=== PATIENT | male | born 1955 | race Caucasian/White ===

== ENCOUNTER 2021-12-31 15:31 | Emergency (ER) | payer MEDICARE, SELFPAY ==
--- NOTE | ~2021-12-31 | CT_ITS ---
EXAMINATION: CT abdomen pelvis wo con DATE: 12/31/2021 16:17 INDICATION: Abdominal pain TECHNIQUE: Computed tomography (CT) of the abdomen and pelvis was performed without intravenous contr ast. Automated exposure control and iterative reconstruction technique were employed. The dose-length product was 713.12 mGy-cm. COMPARISON: None FINDINGS: Lung bases are clear. Heart size is normal. Atherosclerotic coronary artery calcific lesion. No peric ardial or pleural effusion. Liver, gallbladder, pancreas, bilateral adrenal glands and left kidney ar e normal. Mild splenomegaly measuring 14 cm in maximal length. 5 stones in the right kidney measuring up to 3 mm. No ureteral stones or hydronephrosis. Prostatomegaly measuring 5.2 x 4.3 cm and which im presses upon the base of the otherwise normal bladder. Moderate-sized fat-containing left inguinal he rnia. There is mild to moderate colonic diverticulosis with a sigmoid predominance. There is no adjac ent inflammatory change to suggest diverticulitis. Small bowel and appendix are normal. No free intra peritoneal gas or fluid. No pathologically enlarged abdominal or pelvic lymphadenopathy. There is aracelis cified atherosclerosis of the aorta and many of the other arteries. Severe lumbar and moderate lower thoracic spondylosis. IMPRESSION: 1. Nonobstructing right nephrolithiasis. 2. Diverticulosis. 3. Symmetric mild splenomegaly measuring 14 cm in maximal length. 4. Prostatomegaly. 5. Moderate-sized fat-containing left inguinal hernia. Reviewed, dictated and finalized at location A.
[2021-12-31 15:36] VITALS: BP 136/81; PULSE 87; RESP 16; TEMP 36.8; O2SAT 99
[2021-12-31 15:48] LABS: Basophils Absolute Auto 0.1 K/mm3 (0.0-0.1); Basophils Percent Auto 0.8 % (0.2-1.2); Eosinophils Percent Auto 0.6 % (0-4.4); Hematocrit 35.4 % (42.0-52.0); Hemoglobin 12.4 g/dL (14.0-18.0); Immature Granulocyte Absolute 0.03 K/mm3 (0.00-0.031); Immature Granulocyte Percent A 0.4 % (0-0.5); Lymphocytes Absolute Auto 1.64 K/mm3 (0.9-3.2); Lymphocytes Percent Auto 23.1 % (18.3-44.2); Mean Corpuscular Volume 108.6 fl (80-100); Mean Platelet Volume 10.2 fl (7.4-10.4); Monocytes Absolute Auto 0.9 K/mm3 (0.1-0.6); Monocytes Percent Auto 12.8 % (2.6-8.5); Neutrophils Absolute Auto 4.4 K/mm3 (1.3-6.7); Neutrophils Percent Auto 62.3 % (45.5-73.1); Platelet Count Result 117 k/mm3 (150-375); Red Blood Count 3.26 M/mm3 (4.6-6.20); Red Cell Distribution Width 13.8 % (11.5-14.5); White Blood Count 7.1 K/mm3 (4.5-10.0)
[2021-12-31 16:00] LABS: Alanine Aminotransferase 139 U/L (4-50); Albumin Level 4.8 g/dL (3.5-5.1); Alkaline Phosphatase 108 U/L (38-126); Anion Gap 8 mmol/L (8-16); Aspartate Amino Transferase 93 U/L (17-59); Bilirubin,Total 0.6 mg/dL (0.2-1.3); Blood Urea Nitrogen 13 mg/dL (9-20); Calcium 9.1 mg/dL (8.4-10.2); Carbon Dioxide 25 mmol/L (22-30); Chloride 105 mmol/L (98-107); Estimated CRCL calculation 89 ml/min; Estimated Glomerular Filt Rate > 60; Glucose 124 mg/dL (65-110); Potassium 3.9 mmol/L (3.4-5.0); Sodium 138 mmol/L (137-145)
--- NOTE | 2021-12-31 17:02 | ED.ABDPAIN ---
HPI - Abdominal Pain General Chief Complaint: Abdominal Pain Stated Complaint: Kidney pain L Time Seen by Provider: 12/31/21 17:02 Source: patient Mode of arrival: ambulatory Limitations: no limitations History of Present Illness HPI narrative: Patient is a 66-year-old male with with a history of hepatitis C, treated, otherwise has not been to a physician in many years, presenting to the emergency department for evaluation of left lower back pain, dysuria over the past week. Patient states that he was on a cruise, developed severe back pain after falling and his back striking 2 steps while on the cruise ship. Patient states that he was ambulatory but did have significant pain with ambulation in the left back. Denied any saddle anesthesia, difficulty with bowel or bladder function. He has been ambulatory but at times does report spasm-like pain in the left lower flank. Patient denies any bruising. No head trauma or loss of consciousness. Patient was ambulatory after the fall. Patient also developed dysuria on the cruise as well as dark urine although he states that this occurred after a day of not drinking much water. The patient went to the cruise ship physician and had a urinalysis that was notable for infection, thus the patient was placed on a course of ciprofloxacin. Patient was advised to return to [facility] and be evaluated at the [facility]. Patient then went to the [facility] in [place] and had a ultrasound done which showed stones in the left kidney. Patient states he returns here for continued left flank pain and wanted a second opinion. Patient denies dysuria, hematuria. He denies fever, chills, nausea, vomiting, chest pain, cough or shortness of breath. Denies leg swelling or calf pain. Denies significant constipation or diarrhea. Denies frontal abdominal pain. Related Data Allergies Allergy/AdvReac Type Severity Reaction Status Date / Time lisinopril Allergy Unknown Verified 12/31/21 15:34 Review of Systems Review of Systems: CONSTITUTIONAL: Denies fever, chills, or sweats. EYES: Denies visual changes, redness, or discharge. ENT: Denies rhinorrhea, congestion, sore throat, or otalgia. CARDIOVASCULAR: Denies chest pain, palpitations, or edema. RESPIRATORY: Denies cough or dyspnea. GASTROINTESTINAL: Denies abdominal pain, nausea, vomiting, or diarrhea. GENITOURINARY: Denies dysuria or hematuria. SKIN: Denies rash or itching. MUSCULOSKELETAL: Reports left back pain, joint pain, or myalgia. NEUROLOGIC: Denies headache, numbness, or weakness. [facility] Past Medical History Medical History (Updated 12/31/21 @ 19:12 by Marge Brock MD) Hepatitis C Surgical History Surgical History (Updated 12/31/21 @ 19:12 by Marge Brock MD) H/O vasectomy Family History Family History (Updated 04/28/12 @ 09:37 by DOCTOR UNKNOWN) Other Cerebrovascular accident Social History Social History (Updated 12/31/21 @ 19:12 by Marge Brock MD) Alcohol intake: current Substance use: never Living arrangements: with family Gender identity (if verbalized by the patient): Male Exam Narrative: GENERAL: Awake, alert, conversant HEAD: Normocephalic, atraumatic. EYES: PERRLA and EOMI. ENT: Nares clear, no rhinorrhea or epistaxis. Mucous membranes moist. NECK: Supple. No midline cervical tenderness. No step-offs or deformities. No cervical paraspinal tenderness. CHEST: No respiratory distress, breathing even and non labored. No chest wall tenderness. HEART: Regular rate, sinus rhythm ABDOMEN:Non distended, non tender, no rebound, rigidity or guarding, there is posterior left flank tenderness about the left lumbar area which reproduces pain, no ecchymosis or bruising. Thorax: No midline thoracic or lumbar pain. No step-offs or deformities. EXTREMITIES: Normal range of motion. No edema. SKIN: Warm, dry, no rash. NEURO:No focal deficits. Alert and oriented x3. Finger to nose intact bilaterally.
[2021-12-31 17:24] LABS: Add Urine Microscopic? NO; Appearance Urine Clear (Clear); Bilirubin Urine Negative (Negative); Blood Urine Negative (Negative); Color Urine Yellow (Yellow); Glucose Urine UA Negative (Negative); Ketones Urine Negative (Negative); Leukocyte Esterase Ur Negative LEU/UL (Negative); Nitrate Urine Negative (Negative); Protein Urine Negative (Negative); Specific Grav Ur 1.011 (1.001-1.035); Urobilinogen Urine Negative mg/dL (<2.0)
== END 2021-12-31 18:33 | disposition home or self-care (01) ==
LOC: ANHED 18:25
PROVIDERS: Emergency Provider Emergency Medicine; PCP Internal Medicine
DX: S29.9XXA Unspecified injury of thorax, initial encounter (principal); N41.0 Acute prostatitis; Z86.19 Personal history of other infectious and parasitic diseases; K57.90 Diverticulosis of intestine, part unspecified, without perforation or abscess without bleeding; R16.1 Splenomegaly, not elsewhere classified; K40.90 Unilateral inguinal hernia, without obstruction or gangrene, not specified as recurrent; N20.0 Calculus of kidney; W10.9XXA Fall (on) (from) unspecified stairs and steps, initial encounter
CPT/HCPCS: 36415; 74176; 80053; 81003; 85025; 99284

== ENCOUNTER 2022-01-11 09:43 | Outpatient (CLI) | payer MEDICARE, SELFPAY ==
--- NOTE | ~2022-01-11 | XR_ITS ---
EXAMINATION: XR chest 2V 01/11/2022 10:33 INDICATION: Splenomegaly. Positive TB test. PROCEDURE: 2 view chest COMPARISON: 05/30/2012 FINDINGS: The lungs are clear. The cardiomediastinal silhouette is within normal limits. There are no pleural effusions. There is no pneumothorax suspected. IMPRESSION: 1: NO ACUTE CARDIOPULMONARY DISEASE. Reviewed, dictated and finalized at location A.
[2022-01-11 10:30] LABS: Basophils Absolute Auto 0.1 K/mm3 (0.0-0.1); Eosinophils Absolute Auto 0.1 K/mm3 (0-0.3); Eosinophils Percent Auto 1.9 % (0-4.4); Hematocrit 37.1 % (42.0-52.0); Hemoglobin 12.8 g/dL (14.0-18.0); Immature Granulocyte Absolute 0.02 K/mm3 (0.00-0.031); Immature Granulocyte Percent A 0.3 % (0-0.5); Lymphocytes Percent Auto 27.5 % (18.3-44.2); Mean Corpuscular HGB Conc 34.5 g/dl (32-36); Mean Corpuscular Hemoglobin 37.6 pg (26-34); Mean Corpuscular Volume 109.1 fl (80-100); Mean Platelet Volume 10.2 fl (7.4-10.4); Monocytes Percent Auto 17.5 % (2.6-8.5); Neutrophils Percent Auto 51.8 % (45.5-73.1); Platelet Count Result 104 k/mm3 (150-375); Red Cell Distribution Width 13.4 % (11.5-14.5); White Blood Count 5.8 K/mm3 (4.5-10.0)
[2022-01-11 10:46] LABS: Alanine Aminotransferase 145 U/L (4-50); Albumin Level 4.6 g/dL (3.5-5.1); Alkaline Phosphatase 117 U/L (38-126); Anion Gap 5 mmol/L (8-16); Aspartate Amino Transferase 92 U/L (17-59); Bilirubin,Total 0.5 mg/dL (0.2-1.3); Blood Urea Nitrogen 14 mg/dL (9-20); Calcium 9.4 mg/dL (8.4-10.2); Carbon Dioxide 28 mmol/L (22-30); Chloride 106 mmol/L (98-107); Estimated Glomerular Filt Rate > 60; Glucose 83 mg/dL (65-110); Potassium 4.3 mmol/L (3.4-5.0); Sodium 139 mmol/L (137-145)
[2022-01-11 10:49] LABS: Hemoglobin A1C 5.6 % (<5.7); Iron 132 ug/dL (49-181)
[2022-01-11 10:59] LABS: Percent Iron Saturation 38 % (20-50)
[2022-01-11 11:44] LABS: Hepatitis C Virus Antibody Reactive (Negative)
[2022-01-11 11:48] LABS: Folic Acid 14.5 ng/mL (2.76->20)
[2022-01-11 13:02] LABS: HIV 1/2 Ab P24 Ag Result Negative (Negative)
[2022-01-15 12:41] LABS: Hepatitis C RNA, Quant PCR <15 IU/mL
== END 2022-01-11 09:44 | disposition home or self-care (01) ==
PROVIDERS: PCP Internal Medicine; Visit Provider Nurse Practitioner
DX: R16.1 Splenomegaly, not elsewhere classified (principal); D64.9 Anemia, unspecified; N40.0 Benign prostatic hyperplasia without lower urinary tract symptoms; R73.9 Hyperglycemia, unspecified; Z12.5 Encounter for screening for malignant neoplasm of prostate
CPT/HCPCS: 36415; 71046; 80053; 82607; 82728; 82746; 83036; 83540; 83550; 84153; 84443; 85025; 86703; 86803; 87522; G0103; G0432

== ENCOUNTER 2022-01-17 08:03 | Outpatient (CLI) | payer MEDICARE, SELFPAY ==
[2022-01-20 14:39] LABS: Hepatitis C RNA, Quant PCR <15 IU/mL
== END 2022-01-17 08:04 | disposition home or self-care (01) ==
LOC: ANHLAB 08:04
PROVIDERS: PCP Internal Medicine; Visit Provider Nurse Practitioner
DX: R76.8 Other specified abnormal immunological findings in serum (principal)
CPT/HCPCS: 36415; 87522

== ENCOUNTER 2022-01-23 07:58 | Outpatient (CLI) | payer MEDICARE, SELFPAY ==
[2022-01-23 08:37] LABS: Basophils Percent Auto 0.5 % (0.2-1.2); Eosinophils Absolute Auto 0.1 K/mm3 (0-0.3); Eosinophils Percent Auto 1.2 % (0-4.4); Hemoglobin 12.1 g/dL (14.0-18.0); Immature Granulocyte Absolute 0.02 K/mm3 (0.00-0.031); Immature Granulocyte Percent A 0.3 % (0-0.5); Lymphocytes Absolute Auto 1.82 K/mm3 (0.9-3.2); Lymphocytes Percent Auto 31.3 % (18.3-44.2); Mean Corpuscular HGB Conc 34.6 g/dl (32-36); Mean Corpuscular Hemoglobin 37.6 pg (26-34); Mean Corpuscular Volume 108.7 fl (80-100); Mean Platelet Volume 10.2 fl (7.4-10.4); Monocytes Absolute Auto 0.6 K/mm3 (0.1-0.6); Monocytes Percent Auto 9.5 % (2.6-8.5); Neutrophils Absolute Auto 3.3 K/mm3 (1.3-6.7); Neutrophils Percent Auto 57.2 % (45.5-73.1); Platelet Count Result 110 k/mm3 (150-375); Red Blood Count 3.22 M/mm3 (4.6-6.20); Red Cell Distribution Width 13.5 % (11.5-14.5); White Blood Count 5.8 K/mm3 (4.5-10.0)
== END 2022-01-23 07:59 | disposition home or self-care (01) ==
LOC: ANHLAB 08:01
PROVIDERS: PCP Internal Medicine; Visit Provider Nurse Practitioner
DX: D69.6 Thrombocytopenia, unspecified (principal)
CPT/HCPCS: 36415; 85025

== ENCOUNTER 2022-01-26 08:17 | Outpatient (CLI) | payer MEDICARE, SELFPAY ==
[2022-01-26 09:19] LABS: Cholesterol 153 mg/dL (0-200); HDL Direct 32 mg/dL; Triglycerides 150 mg/dL (<150)
[2022-01-26 09:29] LABS: LDL Cholesterol Direct 75 mg/dL
== END 2022-01-26 08:18 | disposition home or self-care (01) ==
PROVIDERS: PCP Internal Medicine; Visit Provider Nurse Practitioner
DX: R74.01 Elevation of levels of liver transaminase levels (principal); Z13.220 Encounter for screening for lipoid disorders
CPT/HCPCS: 36415; 80061

== ENCOUNTER 2022-01-29 15:10 | Outpatient (CLI) | payer MEDICARE, SELFPAY ==
--- NOTE | ~2022-01-29 | XR_ITS ---
EXAM: XR abdomen/kub 1V HISTORY: KIDNEY STONE ON RIGHT SIDE COMPARISON: CT abdomen and pelvis 12/31/2021. FINDINGS: Normal bowel gas pattern. Vascular calcifications. Degenerative changes in the spine and b ilateral hips. 4 small right renal calcifications, 2 to 3 mm in size, unchanged. Mild splenomegaly. IMPRESSION: Stable right nephrolithiasis. Reviewed, dictated and finalized at location K.
== END 2022-01-29 15:11 | disposition home or self-care (01) ==
LOC: ANHIMG 15:13
PROVIDERS: PCP Internal Medicine; Visit Provider Urology
DX: N20.0 Calculus of kidney (principal)
CPT/HCPCS: 74018

== ENCOUNTER 2022-02-01 08:18 | Outpatient (CLI) | payer MEDICARE, SELFPAY | END 2022-02-01 08:19 | disposition home or self-care (01) | PROVIDERS: PCP Internal Medicine; Visit Provider Nurse Practitioner | DX: H91.90 Unspecified hearing loss, unspecified ear (principal) | CPT/HCPCS: 92557; 92567 ==

== ENCOUNTER 2022-02-06 08:41 | Outpatient (CLI) | payer MEDICARE, SELFPAY ==
--- NOTE | ~2022-02-06 | US_ITS ---
EXAMINATION: US abdomen complete DATE: 02/06/2022 09:45 INDICATION: Abnormal liver function tests. TECHNIQUE: Multiple grayscale and Doppler ultrasound images of the abdomen were obtained. COMPARISON: CT abdomen and pelvis 12/31/2021 FINDINGS: There is atherosclerosis of the abdominal aorta. The inferior vena cava is normal. The visu alized portions of the head and body of the pancreas are normal. There is diffuse hepatic steatosis. There is normal flow in main portal vein. The gallbladder is normal in size. There are comet tail art ifacts of the gallbladder wall, consistent with adenomyomatosis. No gallstones or gallbladder wall th ickening. There was no sonographic Roberts sign. The common duct is normal and measures 4 mm. The kidn eys are normal in size. There is mild splenomegaly measuring 14.3 cm. IMPRESSION: 1. Diffuse hepatic steatosis. 2. Mild splenomegaly. Reviewed, dictated and finalized at location B.
== END 2022-02-06 08:42 | disposition home or self-care (01) ==
LOC: ANHIMG 08:45
PROVIDERS: PCP Internal Medicine; Visit Provider Nurse Practitioner
DX: R74.01 Elevation of levels of liver transaminase levels (principal); K76.0 Fatty (change of) liver, not elsewhere classified; R16.1 Splenomegaly, not elsewhere classified
CPT/HCPCS: 76700

== ENCOUNTER 2022-03-02 10:45 | Outpatient (CLI) | payer MEDICARE, SELFPAY ==
[2022-03-02 11:37] LABS: Basophils Percent Auto 0.7 % (0.2-1.2); Eosinophils Absolute Auto 0.1 K/mm3 (0-0.3); Eosinophils Percent Auto 1.9 % (0-4.4); Hematocrit 33.8 % (42.0-52.0); Hemoglobin 11.5 g/dL (14.0-18.0); Immature Granulocyte Absolute 0.04 K/mm3 (0.00-0.031); Immature Granulocyte Percent A 0.7 % (0-0.5); Lymphocytes Absolute Auto 1.36 K/mm3 (0.9-3.2); Lymphocytes Percent Auto 23.9 % (18.3-44.2); Mean Corpuscular Hemoglobin 37.6 pg (26-34); Mean Corpuscular Volume 110.5 fl (80-100); Mean Platelet Volume 10.5 fl (7.4-10.4); Monocytes Absolute Auto 0.8 K/mm3 (0.1-0.6); Monocytes Percent Auto 14.2 % (2.6-8.5); Neutrophils Absolute Auto 3.3 K/mm3 (1.3-6.7); Neutrophils Percent Auto 58.6 % (45.5-73.1); Red Blood Count 3.06 M/mm3 (4.6-6.20); White Blood Count 5.7 K/mm3 (4.5-10.0)
[2022-03-02 11:41] LABS: Platelet Count Result 94 k/mm3 (150-375)
[2022-03-02 11:54] LABS: Alanine Aminotransferase 94 U/L (6-50); Albumin Level 4.6 g/dL (3.5-5.1); Alkaline Phosphatase 146 U/L (38-126); Anion Gap 8 mmol/L (8-16); Aspartate Amino Transferase 74 U/L (17-59); Bilirubin,Total 0.3 mg/dL (0.2-1.3); Blood Urea Nitrogen 11 mg/dL (9-20); Calcium 9.2 mg/dL (8.4-10.2); Carbon Dioxide 24 mmol/L (22-30); Chloride 107 mmol/L (98-107); Estimated Glomerular Filt Rate > 60; Glucose 96 mg/dL (65-110); Lactate Dehydrogenase 497 U/L (313-618); Potassium 4.4 mmol/L (3.4-5.0); Sodium 139 mmol/L (137-145)
[2022-03-02 12:03] LABS: Iron 93 ug/dL (49-181)
[2022-03-02 12:12] LABS: Percent Iron Saturation 29 % (20-50)
[2022-03-02 13:07] LABS: Folic Acid > 20.0 ng/mL (2.76->20)
[2022-03-07 16:50] LABS: Methylmalonic Acid 136 nmol/L (87-318)
== END 2022-03-02 10:46 | disposition home or self-care (01) ==
LOC: ANHLAB 10:46
PROVIDERS: PCP Internal Medicine; Visit Provider Internal Medicine Hematology & Oncology
DX: D64.9 Anemia, unspecified (principal)
CPT/HCPCS: 36415; 80053; 82607; 82728; 82746; 83540; 83550; 83615; 83921; 84443; 85025

== ENCOUNTER 2022-03-20 10:43 | Outpatient (RCR) | payer MEDICARE, MEDICAID, SELFPAY | END 2022-03-20 23:59 | disposition home or self-care (01) | LOC: ANHAUDIO 10:43 | PROVIDERS: PCP Internal Medicine; Visit Provider Nurse Practitioner | DX: Z46.1 Encounter for fitting and adjustment of hearing aid (principal) | CPT/HCPCS: 99199 ==

== ENCOUNTER 2022-09-25 10:56 | Outpatient (CLI) | payer MEDICARE, SELFPAY ==
[2022-09-25 11:09] LABS: Basophils Absolute Auto 0.1 K/mm3 (0.0-0.1); Basophils Percent Auto 0.8 % (0.2-1.2); Eosinophils Absolute Auto 0.1 K/mm3 (0-0.3); Eosinophils Percent Auto 1.4 % (0-4.4); Hematocrit 35.5 % (42.0-52.0); Hemoglobin 12.3 g/dL (14.0-18.0); Immature Granulocyte Absolute 0.01 K/mm3 (0.00-0.031); Immature Granulocyte Percent A 0.1 % (0-0.5); Mean Corpuscular HGB Conc 34.6 g/dl (32-36); Mean Corpuscular Hemoglobin 37.4 pg (26-34); Mean Corpuscular Volume 107.9 fl (80-100); Mean Platelet Volume 9.8 fl (7.4-10.4); Neutrophils Absolute Auto 4.2 K/mm3 (1.3-6.7); Neutrophils Percent Auto 59.7 % (45.5-73.1); Platelet Count Result 119 k/mm3 (150-375); Red Blood Count 3.29 M/mm3 (4.6-6.20); Red Cell Distribution Width 13.8 % (11.5-14.5); White Blood Count 7.1 K/mm3 (4.5-10.0)
[2022-09-25 11:13] LABS: Blood Urea Nitrogen 13 mg/dL (8-26); Carbon Dioxide 26 mmol/L (22-30); Chloride 104 mmol/L (98-109); Estimated Glomerular Filt Rate > 60; Glucose 101 mg/dL (70-105); Ionized Calcium (POC) 1.21 mmol/L (1.11-1.31); Potassium 4.2 mmol/L (3.5-4.9); Sodium 141 mmol/L (138-146)
[2022-09-25 15:31] LABS: Iron 118 ug/dL (49-181)
[2022-09-25 15:41] LABS: Percent Iron Saturation 34 % (20-50)
[2022-09-25 15:42] LABS: Alanine Aminotransferase 53 U/L (6-50); Alkaline Phosphatase 110 U/L (38-126); Anion Gap 10 mmol/L (8-16); Aspartate Amino Transferase 56 U/L (17-59); Bilirubin,Total 0.5 mg/dL (0.2-1.3); Blood Urea Nitrogen 14 mg/dL (9-20); Calcium 9.2 mg/dL (8.4-10.2); Carbon Dioxide 25 mmol/L (22-30); Chloride 106 mmol/L (98-107); Estimated Glomerular Filt Rate > 60; Glucose 101 mg/dL (65-110); Potassium 4.2 mmol/L (3.4-5.0); Sodium 141 mmol/L (137-145)
== END 2022-09-25 10:57 | disposition home or self-care (01) ==
LOC: ANHLAB 10:57
PROVIDERS: PCP Internal Medicine; Visit Provider Internal Medicine Hematology & Oncology
DX: D64.9 Anemia, unspecified (principal)
CPT/HCPCS: 36415; 80047; 80053; 82728; 83540; 83550; 85025

== ENCOUNTER 2023-03-22 13:47 | Outpatient (CLI) | payer MEDICARE, SELFPAY ==
[2023-03-22 13:59] LABS: Basophils Absolute Auto 0.1 K/mm3 (0.0-0.1); Basophils Percent Auto 0.7 % (0.2-1.2); Eosinophils Absolute Auto 0.1 K/mm3 (0-0.3); Eosinophils Percent Auto 1.4 % (0-4.4); Immature Granulocyte Absolute 0.01 K/mm3 (0.00-0.031); Immature Granulocyte Percent A 0.1 % (0-0.5); Lymphocytes Absolute Auto 1.42 K/mm3 (0.9-3.2); Lymphocytes Percent Auto 20.2 % (18.3-44.2); Mean Corpuscular HGB Conc 35.5 g/dl (32-36); Mean Corpuscular Hemoglobin 37.4 pg (26-34); Mean Corpuscular Volume 105.4 fl (80-100); Mean Platelet Volume 9.7 fl (7.4-10.4); Monocytes Absolute Auto 0.8 K/mm3 (0.1-0.6); Monocytes Percent Auto 11.8 % (2.6-8.5); Neutrophils Absolute Auto 4.6 K/mm3 (1.3-6.7); Neutrophils Percent Auto 65.8 % (45.5-73.1); Platelet Count Result 117 k/mm3 (150-375); Red Blood Count 2.94 M/mm3 (4.6-6.20); Red Cell Distribution Width 13.7 % (11.5-14.5)
[2023-03-22 16:15] LABS: Alanine Aminotransferase 36 U/L (6-50); Albumin Level 4.6 g/dL (3.5-5.1); Alkaline Phosphatase 94 U/L (38-126); Anion Gap 9 mmol/L (8-16); Aspartate Amino Transferase 36 U/L (17-59); Bilirubin,Total 0.4 mg/dL (0.2-1.3); Blood Urea Nitrogen 12 mg/dL (9-20); Calcium 9.2 mg/dL (8.4-10.2); Carbon Dioxide 24 mmol/L (22-30); Chloride 104 mmol/L (98-107); Estimated Glomerular Filt Rate > 60; Glucose 152 mg/dL (65-110); Iron 102 ug/dL (49-181); Potassium 4.1 mmol/L (3.4-5.0); Sodium 137 mmol/L (137-145)
[2023-03-22 16:24] LABS: Percent Iron Saturation 30 % (20-50)
== END 2023-03-22 13:48 | disposition home or self-care (01) ==
LOC: ANHLAB 13:48
PROVIDERS: PCP Internal Medicine; Visit Provider Internal Medicine Hematology & Oncology
DX: D64.9 Anemia, unspecified (principal)
CPT/HCPCS: 36415; 80053; 82728; 83540; 83550; 85025

== ENCOUNTER 2023-09-23 08:48 | Outpatient (CLI) | payer MEDICARE, SELFPAY ==
[2023-09-23 09:03] LABS: Basophils Absolute Auto 0.1 K/mm3 (0.0-0.1); Basophils Percent Auto 0.8 % (0.2-1.2); Eosinophils Absolute Auto 0.2 K/mm3 (0-0.3); Eosinophils Percent Auto 2.3 % (0-4.4); Hematocrit 36.7 % (42.0-52.0); Hemoglobin 12.5 g/dL (14.0-18.0); Immature Granulocyte Absolute 0.03 K/mm3 (0.00-0.031); Immature Granulocyte Percent A 0.4 % (0-0.5); Lymphocytes Absolute Auto 2.06 K/mm3 (0.9-3.2); Lymphocytes Percent Auto 28.1 % (18.3-44.2); Mean Corpuscular HGB Conc 34.1 g/dl (32-36); Mean Corpuscular Hemoglobin 36.5 pg (26-34); Mean Corpuscular Volume 107.3 fl (80-100); Mean Platelet Volume 9.7 fl (7.4-10.4); Monocytes Absolute Auto 1.1 K/mm3 (0.1-0.6); Monocytes Percent Auto 14.6 % (2.6-8.5); Neutrophils Absolute Auto 3.9 K/mm3 (1.3-6.7); Neutrophils Percent Auto 53.8 % (45.5-73.1); Platelet Count Result 137 k/mm3 (150-375); Red Blood Count 3.42 M/mm3 (4.6-6.20); Red Cell Distribution Width 14.1 % (11.5-14.5); White Blood Count 7.3 K/mm3 (4.5-10.0)
[2023-09-23 23:02] LABS: Iron 114 ug/dL (49-181)
[2023-09-23 23:03] LABS: Alanine Aminotransferase 36 U/L (6-50); Albumin Level 4.9 g/dL (3.5-5.1); Alkaline Phosphatase 90 U/L (38-126); Anion Gap 8 mmol/L (8-16); Aspartate Amino Transferase 36 U/L (17-59); Bilirubin,Total 0.5 mg/dL (0.2-1.3); Blood Urea Nitrogen 14 mg/dL (9-20); Carbon Dioxide 25 mmol/L (22-30); Chloride 107 mmol/L (98-107); Estimated Glomerular Filt Rate > 60; Glucose 77 mg/dL (65-110); Potassium 4.3 mmol/L (3.4-5.0); Sodium 140 mmol/L (137-145)
[2023-09-23 23:12] LABS: Percent Iron Saturation 35 % (20-50)
[2023-09-24 00:09] LABS: Folic Acid 14.5 ng/mL (2.76->20)
== END 2023-09-23 08:49 | disposition home or self-care (01) ==
LOC: ANHLAB 08:50
PROVIDERS: PCP Internal Medicine; Visit Provider Internal Medicine Hematology & Oncology
DX: D64.9 Anemia, unspecified (principal)
CPT/HCPCS: 36415; 80053; 82607; 82728; 82746; 83540; 83550; 85025

== ENCOUNTER 2023-10-04 08:37 | Outpatient (CLI) | payer MEDICARE, SELFPAY ==
[2023-10-04 12:33] LABS: Cholesterol 153 mg/dL (0-200); HDL Direct 35 mg/dL; Triglycerides 136 mg/dL (<150)
[2023-10-04 12:55] LABS: LDL Cholesterol Direct 82 mg/dL
[2023-10-04 13:12] LABS: Prostate Specific Antigen 1.1 ng/mL (< OR = 4.0)
== END 2023-10-04 08:38 | disposition home or self-care (01) ==
LOC: ANHGOSHLAB 08:39
PROVIDERS: PCP Internal Medicine; Visit Provider Nurse Practitioner
DX: R74.01 Elevation of levels of liver transaminase levels (principal); Z13.220 Encounter for screening for lipoid disorders; Z12.5 Encounter for screening for malignant neoplasm of prostate
CPT/HCPCS: 36415; 80061; 84153; G0103

== ENCOUNTER → 2023-10-30 16:32 | Outpatient (REF) | payer MEDICARE, SELFPAY | LOC: ANHLAB 16:32 | PROVIDERS: PCP Internal Medicine; Visit Provider Plastic Surgery | DX: C44.622 Squamous cell carcinoma of skin of right upper limb, including shoulder (principal) | CPT/HCPCS: 88305 ==

== ENCOUNTER 2024-02-13 19:00 | Emergency (ER) | payer MEDICARE, SELFPAY ==
[2024-02-13 19:24] VITALS: BP 117/77; PULSE 74; RESP 16; TEMP 36.6; O2SAT 98
--- NOTE | 2024-02-13 19:27 | ED.GENADULT ---
HPI - General Adult General Chief complaint: Eye Problems Stated complaint: INJURED L EYE Source: patient, RN notes reviewed and old records reviewed Mode of arrival: ambulatory Limitations: no limitations History of Present Illness HPI narrative: 60 year male presents to [facility] with complaint of left eye watering and pain that started about 4 hours ago. Patient states poke self and eye with tree branch. Patient has not tried any at-home remedies. Patient denies any other injuries. Related Data Home Medications Medication Instructions Recorded Confirmed loratadine 10 mg tablet (Claritin) 10 mg PO DAILY 01/10/22 02/13/24 multivitamin 1 tablet PO DAILY 01/10/22 02/13/24 Allergies Allergy/AdvReac Type Severity Reaction Status Date / Time ciprofloxacin [From Cipro] Allergy Other Verified 02/13/24 19:16 lisinopril Allergy Cough Verified 02/13/24 19:16 Review of Systems Constitutional: Constitutional: Reports no additional constitutional complaints, Denies body ache(s), Denies chills, Denies fatigue, Denies fever(s) and Denies headache(s) Eyes: Eyes: Denies as per HPI, Reports no additional eye complaints, Denies blind spots, Denies blurry vision, Denies exophthalmos, Denies change in vision, Denies decreased night vision, Denies diplopia, Reports eye discharge, Denies irritation and Reports eye pain ENT: Reports system reviewed and no additional complaints, except as documented, Denies vertigo, Denies dizziness, Denies ear discharge, Denies otalgia, Denies facial pain, Denies headache(s), Denies nasal congestion, Denies nasal discharge, Denies sinus pain, Denies sinus pressure and Denies sore throat Cardiovascular: Cardiovascular: Reports no additional cardiovascular complaints, Denies chest pain, Denies chest pain at rest, Denies rapid heart rate and Denies dyspnea Respiratory: Respiratory: Reports no additional respiratory complaints, Denies chest congestion, Denies cough, Denies pain on inspiration, Denies pain with cough and Denies dyspnea Gastrointestinal: Gastrointestinal: Denies abdominal pain, Denies diarrhea, Denies nausea and Denies vomiting Integumentary/Breasts: Skin/Breast: Denies rash Neurologic: Reports system reviewed and no additional complaints, except as documented, Denies vertigo, Denies dizziness and Denies headache(s) Endocrine: Endocrine: Denies fatigue PMFSH Past Medical History Medical History Arthritis Elevated liver enzymes Hepatitis C Surgical History Surgical History H/O repair of rotator cuff 2008 H/O vasectomy S/P lateral meniscal repair 2010 Family History Family History Father Lung cancer Throat cancer Tuberculosis Leukemia Mother Ovarian cancer Other Cerebrovascular accident Social History Social History Smoking status: Former smoker Smoking end date: 10/21/00 Alcohol intake: current Substance use: never Living arrangements: with family Gender identity (if verbalized by the patient): Male Comments At the time of my signature, I reviewed and agree with the nursing past medical, surgical, social, and family history. There is no relevant family history pertinent to the patient complaint. Exam Const: General: cooperative, healthy appearing, no acute distress and well nourished Nutritional Appearance: well nourished Orientation/consciousness: patient oriented x3 Limitations: no limitations HENMT: Head: normal to inspection and normocephalic Ears: external ears normal Face/Nose/Sinus: normal facial exam Face and sinus: normal facial exam Mouth: Yes Normal oral and palatal mucosa present, Yes oropharynx normal and Yes moist mucous membranes Eyes: General: appearance normal, both eyes and all related structures Vis
[2024-02-13] MEDS: TETANUS,DIPHTHERIA,AC PERTUSSIS ADULT (0.5 ML) BOOSTRIX IM (19:40)
== END 2024-02-13 19:50 | disposition home or self-care (01) ==
PROVIDERS: Emergency Provider Registered Nurse; PCP Internal Medicine
DX: S05.02XA Injury of conjunctiva and corneal abrasion without foreign body, left eye, initial encounter (principal); W22.8XXA Striking against or struck by other objects, initial encounter; Z23 Encounter for immunization; M19.90 Unspecified osteoarthritis, unspecified site; Z98.52 Vasectomy status
CPT/HCPCS: 90471; 90715; 99213; A9270; G0463

== ENCOUNTER 2024-05-07 09:46 | Outpatient (CLI) | payer MEDICARE, SELFPAY ==
--- NOTE | 2024-05-12 16:18 | WPDHOMESLEEP ---
Sleep Study - Home Unattended Date of Study: 05/07/24 Ordering Provider: Tiki Goss NP Interpreting Provider: Mary Jo Purdy MD Home Sleep Study Type: Watch JACQUELINE Height: 1.75 m Weight: 83.915 kg Body Mass Index: 27.3 Neck Circumference (inches): 16.5 [place]: 9 Reason for Sleep Study Interrupted sleep, frequent nighttime awakenings Sleep History Chris Hernandez is a 68-year-old man with poor quality sleep. He never awakens from sleep feeling short of breath. He rarely wakes at night with heartburn, belching or coughing.??He never snores, however rarely snores loudly enough that others complain. He rarely has trouble sleeping when he has a cold. He never wakes up gasping for breath during the night. He rarely has breathing problems at night. He occasionally sweats excessively at night. He never notices his heart pounding or beating irregularly during the night. He occasionally falls asleep during the day. He rarely falls asleep involuntarily, never falls asleep while driving. He rarely experiences loss of muscle tone with strong emotion. He never has daytime difficulty at work due to excessive sleepiness. He rarely feels paralyzed on waking or falling asleep. He occasionally experiences vivid dreams upon waking or falling asleep. He rarely feels afraid of going to sleep. He rarely has nightmares. He rarely recalls his dreams. He constantly has thoughts racing through his mind. He occasionally feels sad or depressed. He frequently feels anxiety. He occasional notices parts of his body jerk. He rarely kicks during the night. He occasionally feels crawling or aching feelings in his legs. He rarely feels leg pain at night. He never has morning jaw pain, never grinds his teeth at night. He occasionally feels bothered by pain during the day, rarely awakened by pain during the night. He occasionally wakes up feeling stiff in the morning, and he frequently wakes feeling sore or achy. He occasionally awakens with pain in his neck, spine, or joints. He has fatigue, memory problems and concentration difficulties. At times he can not remember what was just said in a conversation. He feels depressed. Normal bedtime is between 10:00 p.m. and 12 midnight, falling asleep within 15-30 minutes, waking twice at night, goes to the bathroom and returns to sleep within 10-15 minutes. He wakes between 3:00 a.m. and 5:00 a.m. He typically gets between 5 and 6 hours of sleep per night. He takes naps in the day, sometimes feels refreshed after a 10-15 minute nap. He is drowsy for 3 hours after waking. Habits:??Tobacco: former smoker Caffeine: 4 cups of coffee Alcohol: none Recreational substances: none [facility] Past Medical History Medical History Anemia Arthritis Cirrhosis Elevated liver enzymes Hepatitis C Squamous acanthoma of right upper extremity Surgical History Surgical History H/O repair of rotator cuff 2008 H/O vasectomy S/P lateral meniscal repair 2010 Family History Family History Father Lung cancer Throat cancer Tuberculosis Leukemia Mother Ovarian cancer Other Cerebrovascular accident Social History Social History Smoking status: Former smoker Smoking end date: 10/21/00 Alcohol intake: current Substance use: never Living arrangements: with family Gender identity (if verbalized by the patient): Male Medications Home Medications Medication Instructions Recorded Confirmed Type loratadine 10 mg tablet (Claritin) 10 mg PO DAILY 01/10/22 04/02/24 History multivitamin 1 tablet PO DAILY 01/10/22 04/02/24 History eszopiclone 1 mg tablet (Lunesta) 1 mg PO QHS #1 tablet 04/02/24 04/02/24 Rx Sleep Procedure The sleep st
[2024-05-12 16:42] VITALS: BMI 27.3
== END 2024-05-11 14:04 | disposition home or self-care (01) ==
LOC: ANHCSM 09:47
PROVIDERS: PCP Internal Medicine; Visit Provider Nurse Practitioner
DX: G47.33 Obstructive sleep apnea (adult) (pediatric) (principal); G47.19 Other hypersomnia
CPT/HCPCS: 95800

== ENCOUNTER 2024-05-25 09:59 | Outpatient (CLI) | payer MEDICARE, SELFPAY ==
[2024-05-25 10:19] LABS: Basophils Percent Auto 0.6 % (0.2-1.2); Eosinophils Absolute Auto 0.1 K/mm3 (0-0.3); Eosinophils Percent Auto 1.7 % (0-4.4); Hematocrit 33.5 % (42.0-52.0); Hemoglobin 11.6 g/dL (14.0-18.0); Immature Granulocyte Absolute 0.02 K/mm3 (0.00-0.031); Immature Granulocyte Percent A 0.3 % (0-0.5); Lymphocytes Absolute Auto 1.99 K/mm3 (0.9-3.2); Lymphocytes Percent Auto 30.9 % (18.3-44.2); Mean Corpuscular HGB Conc 34.6 g/dl (32-36); Mean Corpuscular Hemoglobin 36.6 pg (26-34); Mean Corpuscular Volume 105.7 fl (80-100); Mean Platelet Volume 9.6 fl (7.4-10.4); Monocytes Absolute Auto 0.9 K/mm3 (0.1-0.6); Monocytes Percent Auto 14.3 % (2.6-8.5); Neutrophils Absolute Auto 3.4 K/mm3 (1.3-6.7); Neutrophils Percent Auto 52.2 % (45.5-73.1); Platelet Count Result 110 k/mm3 (150-375); Red Blood Count 3.17 M/mm3 (4.6-6.20); Red Cell Distribution Width 13.7 % (11.5-14.5); White Blood Count 6.4 K/mm3 (4.5-10.0)
[2024-05-25 12:55] LABS: Alanine Aminotransferase 33 U/L (6-50); Albumin Level 4.8 g/dL (3.5-5.1); Alkaline Phosphatase 68 U/L (38-126); Anion Gap 10 mmol/L (4-12); Aspartate Amino Transferase 32 U/L (17-59); Bilirubin,Total 0.5 mg/dL (0.2-1.3); Blood Urea Nitrogen 14 mg/dL (9-20); Calcium 9.3 mg/dL (8.4-10.2); Carbon Dioxide 23 mmol/L (22-30); Chloride 105 mmol/L (98-107); Estimated Glomerular Filt Rate > 60; Glucose 109 mg/dL (65-110); Potassium 4.2 mmol/L (3.4-5.0); Sodium 138 mmol/L (137-145)
== END 2024-05-25 10:00 | disposition home or self-care (01) ==
LOC: ANHLAB 10:01
PROVIDERS: PCP Internal Medicine; Visit Provider Internal Medicine Hematology & Oncology
DX: D64.9 Anemia, unspecified (principal)
CPT/HCPCS: 36415; 80053; 82607; 85025

== ENCOUNTER 2025-05-07 10:11 | Outpatient (CLI) | payer MEDICARE, SELFPAY | END 2025-05-07 10:12 | disposition home or self-care (01) | LOC: GOSHIMG 10:13 | PROVIDERS: PCP Nurse Practitioner; Visit Provider Nurse Practitioner | DX: M79.671 Pain in right foot (principal) | CPT/HCPCS: 73630 ==

== ENCOUNTER 2025-05-13 08:00 | Outpatient (CLI) | payer MEDICARE, SELFPAY ==
--- OUTSIDE RECORDS SUMMARY | 2025-05-13 08:03 | XMS_ITS | Clinical Summary ---
Author Organization [facility] Edwar Wyman Address [address] [place] [address] Care Team Providers Care Drapery Supervisor Name Role Phone Selvin Marion DO Primary Care Provider Allergies Active Allergy Reactions Criticality Noted Date Comments Ciprofloxacin Other (See Comments) 03/02/2022 Tendinitis Leg cramps Lisinopril Cough Low 03/02/2022 Medications loratadine (CLARITIN) 10 mg tablet Take 10 mg by mouth daily. Active multivitamin (DAILY-ANEL) tablet Take 1 Tablet by mouth daily. 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 Macrocytic anemia 03/02/2022 Family History Relation Name Status Comments Brother Alive Daughter Alive Father Mother Sister 1 Alive Sister 2 Alive Son Alive Social History Tobacco Use Types Packs/Day Years Used Date Smoking Tobacco: Former Smokeless Tobacco: Never Tobacco Cessation:Counseling Given: Not Answered Comments:1999 quit Alcohol Use Standard Drinks/Week Comments Not Currently 0 (1 standard drink = 0.6 oz pur e alcohol) Sex and Gender Information Value Date Recorded Sex Assigned at Not on file Legal Sex Male 2:39 PM CDT Gender Identity Not on file Sexual Orientation Not on file Last Filed Vital Signs Vital Sign Reading Time Taken Comments Blood Pressure 110/67 05/27/2024 3:56 PM CDT Pulse 63 05/27/2024 3:56 PM CDT Temperature 36.6 C (97.8 F) 05/27/2024 3:56 PM CDT Respiratory Rate 14 05/27/2024 3:56 PM CDT Oxygen Saturation 95% 05/27/2024 3:56 PM CDT Inhaled Oxygen Concentration - - Weight 85.7 kg (189 lb) 05/27/2024 3:56 PM CDT Height 175.3 cm (5' 9) 03/26/2022 11:15 AM CDT Body Mass Index 27.91 03/26/2022 11:15 AM CDT Plan of Treatment Upcoming Encounters Date Type Department Care Team (Late st Contact Info) Description 05/27/2025 3:30 PM CDT Office Visit [facility] [place] [address] [place] [address] Niels Zuñiga MD [address] [place] [address] Health Maintenance Due Date Last Done Comments Pre-Diabetes and Diabetes Screening 1955 DTAP/TDAP/TD VACCINES (1 - Tdap) 1974 PNEUMOCOCCAL VACCINE 50+ YEA RS (1 of 2 - PCV) 1974 FIT-DNA Q 3 years 2000 FIT/FOBT Q 1 year 2000 Flex Sig/CT Colonography Q 5 years 2000 ZOSTER VACCINE (1 of 2) 2005 RSV VACCINE (60+ or ) (1 - Risk 60-74 years 1-dose series) 2015 Abdominal Aortic Aneurysm (AAA) Screening 2020 INFLUENZA VACCINE (#1) 2025 COLORECTAL SCREENING 12/24/2032 12/24/2022, 12/25/19 23 Colorectal Cancer Screening 12/24/2032 Insurance MEDICARE PART A AND B Care Teams Drapery Supervisor Relationship Specialty Start Date End Date Selvin Marion DO [address] [place] [id number] PCP - General Internal Medicine 03/02/22
--- OUTSIDE RECORDS SUMMARY | 2025-05-13 08:03 | XMS_ITS | Clinical Summary ---
Author Organization [facility] [employer] Address [address] [place] [address] Care Team Providers Care Crozer Name Role Phone Selvin Marion DO Primary Care Provider [phone] Niels Zuñiga MD Unavailable [phone] Source Comments [facility],non-owned Affiliates and Associated Physician Practices is amultiple site organization consisting of ambulatory clinics and hospital sitesin [place], [place], [place] and [place]. This disclosure is being madepursuant to the Care Everywhere program and may not contain all information available regarding this patient. Last updated 18.[facility] Allergies Active Allergy Reactions Criticality Noted Date Comments Ciprofloxacin Other 04/12/2022 Tendonitis Lisinopril Cough 04/12/2022 Medications * Be aware that medications may not be up to date on this document. Alwaysverify current medications with the patient. loratadine (CLARITIN) 10 MG tablet Take 1 (one) tablet by mouth once daily as needed Active Multiple Vitamin (DAILY VITES) TABS Take 1 (one) tablet by mouth once daily Active ibuprofen (Motrin) 200 MG tablet Take 0.5 (one-half) tablet by mouth every 6 hours as needed for Pain Active carvedilol (Coreg) 3.125 MG tabletIndication s:Hepatic cirrhosis, unspecified hepatic cirrhosis type, unspecified whether ascites present (HCC) Take 1 (one) tablet by mouth 2 times daily 180 tablet 3 03/25/2025 Active Active Problems Problem Noted Date Diagnosed Date Esophageal varices 01/23/2024 Overview (01/23/2024): 12/24/22 EGD: small varices Liver cirrhosis secondary to MASH 01/23/2024 Overview (01/23/2024): 04/12/22 Fibroscan CAP 304, LSM 24.1 05/01/22 TJ liver biopsy: mild steatosis with portal chronic inflammation, at least stage 3 fibrosis 08/22/23 US: coarse echotexture without surface nodularity, no ascites Encounters Date Type Department Care Team Description 03/25/2025 Refill [facility] - GI [address] [place] [address] Patricia Goel MD MEDICATION REFILL 03/11/2025 10:51 AM CDT - 03/11/2025 11:59 PM CDT Hospital Encounter [facility] [address] [place] [address] Patricia Goel MD Discharge Disposition: Home or Self Care 03/11/2025 Travel from Last 3 Months Social History Tobacco Use Types Packs/Day Years Used Date Smoking Tobacco: Former Cigarettes Q uit: 03/26/2002 Smokeless Tobacco: Never Tobacco Cessation:Counseling Given: Not Answered Alcohol Use Standard Drinks/Week Comments Not Currently 0 (1 standard drink = 0.6 oz pur e alcohol) 2 glasses wine in past 6 mos Sex and Gender Information Value Date Recorded Sex Assigned at Not on file Legal Sex Male 12:43 PM CDT Gender Identity Not on file Sexual Orientation Not on file Last Filed Vital Signs Vital Sign Reading Time Taken Comments Blood Pressure 117/75 02/04/2025 2:54 PM CDT Pulse 77 02/04/2025 2:54 PM CDT Temperature 35.8 C (96.5 F) 08/04/2024 2:41 PM CDT Respiratory Rate 17 08/04/2024 3:10 PM CDT Oxygen Saturation 98% 02/04/2025 2:54 PM CDT Inhaled Oxygen Concentration - - Weight 86.5 kg (190 lb 12.8 oz) 02/04/2025 2:54 PM CDT Height 175.3 cm (5' 9) 02/04/2025 2:54 PM CDT Body Mass Index 28.18 02/04/2025 2:54 PM CDT Plan of Treatment Upcoming Encounters Date Type Department Care Team (Late st Contact Info) Description 08/19/2025 3:00 PM CDT Office Visit [facility] - GI [address] [place] [id number] Patricia Goel MD [address] [facility] [address] [place] [address] Health Maintenance Due Date Last Done Comments COLOGUARD (AGES 45-75) - COLON CA SCREENING 1955 CT COLONOGRAPHY - COLON CA SCREENING 1955 FIT - COLON CA SCREENING 1955 FLEX SIG - COLON CA SCREENING 1955 LIPID TESTING 1955 MEDICARE AWV 12 MONTHS 1955 HEPATITIS C SCREENING 07/15/1973 DTAP/TDAP/TD VACCINES (1 - Tdap) 1974 PNEUMOCOCCAL VACCINE 50+ (1 of 2 - PCV) 1974 ZOSTER VACCINE (1 of 2) 2005 HEPATITIS B VACCINE (1 of 3 - Risk 3-dose series) 2015 Respiratory Syncytial Virus (RSV) Vaccine Pt: or over 60 yrs (1 - Risk 60-74 years 1-dose series) 2015 AAA SCREENING 2020 COVID-19 VACCINE ( season) 2024 10/25/2021, 01/09/2021, 12/02/2020 DEPRESSION SCREENING 10/21/2024 INFLUENZA VACCINE (#1) 2025 SCREENING FOR DIABETES 11/02/2027 5, 04/30/2024, 10/31/2023, Additional history exists COLON MONITORING 12/24/2032 12/24/2022, 12/24/2022 COLONOSCOPY - COLON CA SCREENING 12/24/2032 12/24/2022, 12/24/2022 Colorectal Cancer Screening 12/24/2032 HIB VACCINE Aged Out No longer eligi ble based on patient's age to complete this topic HPV VACCINE Aged Out No longer eligi ble based on patient's age to complete this topic MENINGOCOCCAL (Group B) VACCINE SHARED DECISION-MAKING Aged Out No longer eligible based on patient's age to complete this topic MENINGOCOCCAL GROUPS A/C/Y/W VACCINE Aged Out No longer eligible based on patient's age to complete this topic Goals Goal Patient Goal Type Associated Problems Recent Progress Patient-Stated? Author Medication Management General On track( 024 3:56 PM [facility]) Clementina Garcia RN Note: Expected end date: ongoing Interventions: Take all medications as prescribed Let your doctor know right away about any changes in your medications Make sure to request a refill of your medication at least one week prior to your last dose Safety General On track( 022 4:58 PM CDT) Clementina Garcia, ARASH Note: Expected end date: ongoing Interventions: Your nurse will assess your risk for falls/injury each visit Make sure appropriate safety devices are available and within reach Be aware of medications that could predispose you to falling Wear non-skid/rubber sole footwear Keep personal items within easy reach Use some light at night in your room Procedures Procedure Name Priority Date/Time Associated Diagnosis Comments US ABDOMEN LIMITED Routine 03/11/2025 11 :36 AM CDT Hepatic cirrhosis, unspecified hepatic cirrhosis type, unspecified whether ascites present (HCC) COMPREHENSIVE METABOLIC PANEL Routine 11/02/2024 12:14 PM [facility] Hepatic cirrhosis, unspecified hepatic cirrhosis type, unspecified whether ascites present ENDOSCOPY, COLON, SCREENING Routine 12/24/2022 8:17 AM [facility] from Last 3 Months or Most Recently Relevant to Health Maintenance Results * US Abdomen Limited (03/11/2025 11:36 AM CDT) Anatomical Region Laterality Modality Abdomen Ultrasound 03/11/2025 12:0 0 PM CDT Addenda Addendum by Carol Roe MD on 03/11/2025 1:08 PM CDT Note: There are approximately 6 mm size hyperechoic foci with distal shadowing in the lower pole of the right kidney suggesting stones. No associated obstruction or hydronephrosis. > Interpreting Provider: Carol Roe MD on 03/11/2025 1:06 PM Impressions 03/11/2025 12:07 PM CDT IMPRESSION: Impression: Course echotexture with nodular outline indicating cirrhosis. Observation: No hepatic observations identified. US LI RADS screening/surveillance Category: US LI-RADS score:1- Negative. Routine 6 months surveillance ultrasound examination recommended. Visualization score: A - no or minimal limitation. Distended gallbladder with mildly mural thickening and echogenic foci adherent to the mucosa could suggest small polyps. Other possibility is adherent stones. No imaging features of acute cholecystitis. US LI-RADS REFERENCE: US Category: US- 1 negative: No evidence of HCC. US- 2 subthreshold: Observation (S) detected that may warrant short interval US surveillance; observation <10 mm in diameter, not definitely benign. US-3 positive: Observation (S) detected that may warrant multiphase contrast-enhanced imaging; observation equal or more than 10 mm in diameter or new thrombus in the vein. Visualization score: A- no or minimal limitation: limitations, if any, are unlikely to meaningfully affect sensitivity. B- moderate limitations: limitations may obscure small masses. C- severe limitations: Limitations significantly lower sensitivity for focal liver lesions. > Interpreting Provider: Carol Roe MD on 03/11/2025 12:07 PM Narrative 03/11/2025 12:07 PM CDT PROCEDURE: US ABDOMEN LIMITED, DATE/TIME OF EXAM: 03/11/2025 11:36 AM, LOCATION [facility] INDICATION: K74.60: Hepatic cirrhosis, unspecified hepatic cirrhosis type, unspecified whether ascites present (HCC) ADDITIONAL CLINICAL INFORMATION: Ordering Provider Reason For Exam: Liver cirrhosis surveillance Technologist Note: Additional: COMPARISON: 08/31/2024. Technique: Grayscale and color Doppler ultrasound evaluation of the hepatobiliary system was performed with a liver screening protocol. Findings: Liver visualization score: LI-RADS visualization score: A (no or minimal limitation in the liver visualization) Parenchymal morphology: Normal size and minimally irregular outline of the liver. Coarse echogenicity with distorted architecture. Liver observations:No hepatic observations identified. Main portal vein: Patent. Flow direction: Centripetal. PV diameter: 11 mm. Varices: No varices is seen at the magalie hepatis. Ascites: None. Spleen: Spleen is enlarged. Spleen measures: 14 cm. Gallbladder: Gallbladder is distended. There is mild diffuse mural thickening noted. There are multiple echogenic nodules, possibly gallbladder polyps or adherent stones noted in the gallbladder. No pericholecystic fluid collection or tenderness felt. Bile ducts: Normal caliber. CBD measures 4 mm. Right kidney: Measures: 10.4 x 5.1 x 5.3 cm. Right kidney is normal morphology. No focal lesions seen. No stones or hydronephrosis seen. Other findings:None. Procedure Note Carol Roe MD - 03/11/2025 PROCEDURE: US ABDOMEN LIMITED, DATE/TIME OF EXAM: 03/11/2025 11:36 AM, LOCATION [facility] INDICATION: K74.60: Hepatic cirrhosis, unspecified hepatic cirrhosis type,unspecified whether ascites present (HCC) ADDITIONAL CLINICAL INFORMATION: Ordering Provider Reason For Exam: Liver cirrhosis surveillance Technologist Note: Additional: COMPARISON: 08/31/2024. Technique: Grayscale and color Doppler ultrasound evaluation of the hepatobiliary system was performed with a liver screening protocol. Findings: Liver visualization score: LI-RADS visualization score: A (no or minimal limitation in the liver visualization) Parenchymal morphology: Normal size and minimally irregular outline ofthe liver. Coarse echogenicity with distorted architecture. Liver observations:No hepatic observations identified. Main portal vein: Patent. Flow direction: Centripetal. PV diameter: 11 mm. Varices: No varices is seen at the magalie hepatis. Ascites: None. Spleen: Spleen is enlarged. Spleen measures: 14 cm. Gallbladder: Gallbladder is distended. There is mild diffuse mural thickening noted. There are multiple echogenic nodules, possibly gallbladder polyps or adherent stones noted in the gallbladder. No pericholecystic fluid collection or tenderness felt. Bile ducts: Normal caliber. CBD measures 4 mm. Right kidney: Measures: 10.4 x 5.1 x 5.3 cm. Right kidney is normal morphology. No focal lesions seen. No stones or hydronephrosis seen. Other findings:None. IMPRESSION: Impression: Course echotexture with nodular outline indicatingcirrhosis. Observation: No hepatic observations identified. US LI RADS screening/surveillance Category: US LI-RADS score:1- Negative. Routine 6 months surveillance ultrasound examination recommended. Visualization score: A - no or minimal limitation. Distended gallbladder with mildly mural thickening and echogenic foci adherent to the mucosa could suggest small polyps. Other possibility is adherent stones. No imaging features of acute cholecystitis. US LI-RADS REFERENCE: US Category: US- 1 negative: No evidence of HCC. US- 2 subthreshold: Observation (S) detected that may warrant short interval US surveillance; observation <10 mm in diameter, not definitely benign. US-3 positive: Observation (S) detected that may warrant multiphase contrast-enhanced imaging; observation equal or more than 10 mm indiameter or new thrombus in the vein. Visualization score: A- no or minimal limitation: limitations, if any, are unlikely to meaningfully affect sensitivity. B- moderate limitations: limitations may obscure small masses. C- severe limitations: Limitations significantly lower sensitivityfor focal liver lesions. > Interpreting Provider: Carol Roe MD on 512:07 PM us Patricia Goel MD US ORDERABLES Edited Result - Final * (ABNORMAL) COMPREHENSIVE METABOLIC PANEL (11/02/2024 12:14 PM [facility]) BUN 12 7 - 26 mg/dL 11/02/2024 1:10 PM [facility] Creatinine 0.85 0.71 - 1.16 mg/dL 11/02/2024 1:10 PM [facility] Sodium 139 136 - 145 mmol/L 11/02/2024 1:10 PM [facility] Potassium 4.3 3.5 - 4.5 mmol/L 11/02/2024 1:10 PM [facility] Chloride 108(H) 98 - 107 mmol/L 11/02/2024 1:10 PM [facility] CO2 23 22 - 29 mmol/L 11/02/2024 1:10 PM [facility] Glucose 104(H) 70 - 99 mg/dL 11/02/2024 1:10 PM [facility] Calcium 9.4 8.4 - 10.2 mg/dL 11/02/2024 1:10 PM [facility] Protein Total 7.4 6.0 - 8.3 g/dL 11/02/2024 1:10 PM [facility] Albumin 4.5 3.4 - 5.0 g/dL 11/02/2024 1:10 PM [facility] Bilirubin Total 0.4 0.2 - 1.2 mg/dL 11/02/2024 1:10 PM [facility] Alkaline Phosphatase 84 40 - 150 U/L 11/02/2024 1:10 PM [facility] ALT 41 5 - 55 U/L 11/02/2024 1:10 PM [facility] AST 46(H) 5 - 34 U/L 11/02/2024 1:10 PM [facility] Anion Gap 8 6 - 16 11/02/2024 1:10 PM [facility] BUN/Creatinine Ratio 14 7 - 23 11/02/2024 1:10 PM [facility] Osmolality Calculated 288 275 - 295 mOsm/kg 11/02/2024 1:10 PM [facility] Albumin/Globulin Ratio 1.6 1.1 - 2.3 11/02/2024 1:10 PM [facility] eGFR by CKD-EPI >90 >=90 mL/min/1.7 3 m2 11/02/2024 1:10 PM [facility] Blood BLOOD SPECIMEN / Unknown Lab Venipuncture / Unknown 11/02/2024 12:14 PM [facility] 11/02/2024 12:41 PM [facility] Patricia Goel MD LAB - CHEMISTRY ORDERABLES Final Result [facility] [address] [place] [address] [phone] * ENDOSCOPY, COLON, SCREENING (12/24/2022 8:17 AM [facility]) Report Endoscopy POC Endoscopy Department Report _ Patient Name: Chris Garcia Procedure Date: 12/24/2022 8:17 AM Date of : 1955 Classification: Outpatient Gender: Male Ethnicity: Not or Race: White _ Providers: Antonio Kelly MD, Luca William (Fellow) Referring MD: Selvin Marion (Referring MD) Procedure: Colonoscopy Indications: Screening for colorectal malignant neoplasm Medications: Monitored Anesthesia Care Comorbidities MORAN cirrhosis Patient Profile: Patient with MORAN cirrhosis here for colon cancer screening. Description of Procedure: Pre-Anesthesia Assessment: - Prior to the procedure, a History and Physical was performed, and patient medications and allergies were reviewed. The patient's tolerance of previous anesthesia was also reviewed. The risks and benefits of the procedure and the sedation options and risks were discussed with the patient. All questions were answered, and informed consent was obtained. Prior Anticoagulants: The patient has taken no previous anticoagulant or antiplatelet agents. ASA Grade Assessment: III - A patient with severe systemic disease. After reviewing the risks and benefits, the patient was deemed in satisfactory condition to undergo the procedure. After I obtained informed consent, the scope was passed under direct vision. Throughout the procedure, the patient's blood pressure, pulse, and oxygen saturations were monitored continuously. The Colonoscope was introduced through the anus and advanced to the cecum, identified by appendiceal orifice and ileocecal valve. The colonoscopy was performed without difficulty. The ileocecal valve, appendiceal orifice, and rectum were photographed. The quality of the bowel preparation was adequate to identify polyps 6 mm and larger in size. Findings: The perianal and digital rectal examinations were normal. Multiple small-mouthed diverticula were found in the sigmoid colon. Non-bleeding external hemorrhoids were found during retroflexion. The hemorrhoids were small. The exam was otherwise without abnormality. Estimated Blood Loss: Estimated blood loss: none. Complications: No immediate complications. Impression: - Diverticulosis in the sigmoid colon. - Non-bleeding external hemorrhoids. - The examination was otherwise normal. - No specimens collected. Recommendation: - Discharge patient to home (with escort). - Resume previous diet. - Repeat colonoscopy in 10 years for screening purposes. - Return to GI clinic as previously scheduled. - Continue present medications. Attending Participation: I was present and participated during the entire procedure, including non-prakash portions. Procedure Code(s): --- Professional --- 08009, Colonoscopy, flexible; diagnostic, including collection of specimen(s) by brushing or washing, when performed (separate procedure) Diagnosis Code(s): --- Professional --- Z12.11, Encounter for screening for malignant neoplasm of colon K64.4, Residual hemorrhoidal skin tags K57.30, Diverticulosis of large intestine without perforation or abscess without bleeding CPT copyright 2019 [employer]. All rights reserved. The codes documented in this report are preliminary and upon tent finisher review may be revised to meet current compliance requirements. Antonio Kelly MD 12/24/2022 9:03:06 AM This report has been signed electronically. Note Initiated On: 12/24/2022 8:17 AM Number of Addenda: [address] [id number] [facility] 12/24/2022 8:17 AM [facility] Antonio Kelly MD GI PROCEDURE ORDERABLES Edited Result - Final [facility] from Last 3 Months or Most Recently Relevant to Health Maintenance Insurance MEDICARE MEDICARE MEDICARE SELF PAY NO INSURANCE Member Subscriber Plan / Payer (Ef fective for All Dates) Name:Crhis Garcia Member ID:Not on file Relation to Subscriber:Not on file Name:CHRIS GARCIA Subscriber ID:Not on file (Home) Address: [place] [address] Payer ID:Not on file Group ID:Not on file Type:Self Pay Address: [place], [place] Care Teams Crozer Relationship Specialty Start Date End Date Selvin Marion DO PCP - General 01/25/22 Niels Zuñiga MD [address] [address] Medical Oncology 04/12/22
[2025-05-13 13:12] LABS: Cholesterol 157 mg/dL (0-200); HDL Direct 32 mg/dL; Triglycerides 132 mg/dL (<150)
[2025-05-13 13:48] LABS: Prostate Specific Antigen 1.0 ng/mL (< OR = 4.0)
== END 2025-05-13 08:01 | disposition home or self-care (01) ==
LOC: ANHGOSHLAB 08:01
PROVIDERS: PCP Nurse Practitioner; Visit Provider Nurse Practitioner
DX: Z12.5 Encounter for screening for malignant neoplasm of prostate (principal); R74.01 Elevation of levels of liver transaminase levels; Z13.220 Encounter for screening for lipoid disorders
CPT/HCPCS: 36415; 80061; 84153; G0103

== ENCOUNTER 2025-05-24 08:16 | Outpatient (CLI) | payer MEDICARE, SELFPAY ==
--- OUTSIDE RECORDS SUMMARY | 2025-05-24 08:21 | XMS_ITS | Clinical Summary ---
Author Organization [facility] [employer] Address [address] [place] [address] Care Team Providers Care Physical Therapy Aide Name Role Phone Selvin Marion DO Primary Care Provider [phone] Niels Zuñiga MD Unavailable [phone] Source Comments [facility],non-owned Affiliates and Associated Physician Practices is amultiple site organization consisting of ambulatory clinics and hospital sitesin [place], [place], [place] and [place]. This disclosure is being madepursuant to the Care Everywhere program and may not contain all information available regarding this patient. Last updated 18.[facility] Allergies Active Allergy Reactions Criticality Noted [...] Refill [facility] [address] [place] [address] Patricia Goel MD MEDICATION REFILL 03/11/2025 10:51 AM CDT - 03/11/2025 11:59 PM CDT Hospital Encounter [facility] [address] [place] [address] Patricia Goel MD Discharge Disposition: Home or [...] Visit [facility] [address] [place] [id number] Patricia Goel MD [address] [place] [address] Health Maintenance Due Date Last [...] Management General On track( 024 3:56 PM CUSTOMER SOLUTIONS COORDINATOR) Clementina Garcia RN Note: Expected end date: [...] COMPREHENSIVE METABOLIC PANEL Routine 11/02/2024 12:14 PM CUSTOMER SOLUTIONS COORDINATOR Hepatic cirrhosis, unspecified hepatic cirrhosis type, unspecified whether ascites present ENDOSCOPY, COLON, SCREENING Routine 12/24/2022 8:17 AM CUSTOMER SOLUTIONS COORDINATOR from Last 3 Months or Most Recently [...] DATE/TIME OF EXAM: 03/11/2025 11:36 AM, LOCATION [facility] INDICATION: K74.60: Hepatic cirrhosis, unspecified hepatic cirrhosis [...] DATE/TIME OF EXAM: 03/11/2025 11:36 AM, LOCATION [facility] INDICATION: K74.60: Hepatic cirrhosis, unspecified hepatic cirrhosis [...] (ABNORMAL) COMPREHENSIVE METABOLIC PANEL (11/02/2024 12:14 PM CUSTOMER SOLUTIONS COORDINATOR) BUN 12 7 - 26 mg/dL 11/02/2024 1:10 PM [facility] Creatinine 0.85 0.71 - 1.16 mg/dL 11/02/2024 1:10 PM [facility] Sodium 139 136 - 145 mmol/L 11/02/2024 1:10 PM [facility] Potassium 4.3 3.5 - 4.5 mmol/L 11/02/2024 1:10 PM [facility] Chloride 108(H) 98 - 107 mmol/L 11/02/2024 1:10 PM [facility] CO2 23 22 - 29 mmol/L 11/02/2024 1:10 PM [facility] Glucose 104(H) 70 - 99 mg/dL 11/02/2024 1:10 PM [facility] Calcium 9.4 8.4 - 10.2 mg/dL 11/02/2024 1:10 PM [facility] Protein Total 7.4 6.0 - 8.3 g/dL 11/02/2024 1:10 PM [facility] Albumin 4.5 3.4 - 5.0 g/dL 11/02/2024 1:10 PM [facility] Bilirubin Total 0.4 0.2 - 1.2 mg/dL 11/02/2024 1:10 PM [facility] Alkaline Phosphatase 84 40 - 150 U/L 11/02/2024 1:10 PM [facility] ALT 41 5 - 55 U/L 11/02/2024 1:10 PM [facility] AST 46(H) 5 - 34 U/L 11/02/2024 1:10 PM [facility] Anion Gap 8 6 - 16 11/02/2024 1:10 PM [facility] BUN/Creatinine Ratio 14 7 - 23 11/02/2024 1:10 PM [facility] Osmolality Calculated 288 275 - 295 mOsm/kg 11/02/2024 1:10 PM [facility] Albumin/Globulin Ratio 1.6 1.1 - 2.3 11/02/2024 1:10 PM [facility] eGFR by CKD-EPI >90 >=90 mL/min/1.7 3 m2 11/02/2024 1:10 PM [facility] Blood BLOOD SPECIMEN / Unknown Lab Venipuncture / Unknown 11/02/2024 12:14 PM CUSTOMER SOLUTIONS COORDINATOR 11/02/2024 12:41 PM [facility] [place] Patricia Goel MD LAB - CHEMISTRY ORDERABLES Final Result [facility] [address] [place] [address] [phone] * ENDOSCOPY, COLON, SCREENING (12/24/2022 8:17 AM CUSTOMER SOLUTIONS COORDINATOR) Report Endoscopy POC Endoscopy Department Report _ Patient Name: Chris Hernandez Procedure Date: 12/24/2022 8:17 AM Date of : 1955 Classification: Outpatient Gender: Male Ethnicity: Not or Race: White _ Providers: Antonio Kelly MD, Lcua William (Fellow) Referring MD: Selvin Marion (Referring [...] non-prakash portions. Procedure Code(s): --- Professional --- 51412, Colonoscopy, flexible; diagnostic, including collection of specimen(s) [...] in this report are preliminary and upon rn renal review may be revised to meet current compliance requirements. Antonio Kelly MD 12/24/2022 9:03:06 AM This report has been signed electronically. Note Initiated On: 12/24/2022 8:17 AM Number of Addenda: [address] [address] [facility] 12/24/2022 8:17 AM CUSTOMER SOLUTIONS COORDINATOR Antonio Kelly MD GI PROCEDURE ORDERABLES Edited Result - Final [facility] from Last 3 Months or Most Recently Relevant to Health Maintenance Insurance MEDICARE MEDICARE MEDICARE SELF PAY NO INSURANCE Member Subscriber Plan / Payer (Ef fective for All Dates) Name:Chris Hernandez Member ID:Not on file Relation to Subscriber:Not on file Name:CHRIS HERNANDEZ Subscriber ID:Not on file (Home) Address: [place] [address] Payer ID:Not on file Group ID:Not on file Type:Self Pay Address: [place], [place] Care Teams Physical Therapy Aide Relationship Specialty Start Date End Date Selvin Marion DO PCP - General 01/25/22 Niels Zuñiga MD [address] [address] Medical Oncology 04/12/22
--- OUTSIDE RECORDS SUMMARY | 2025-05-24 08:21 | XMS_ITS | Clinical Summary ---
Author Organization [facility] Edwar Wyman Address [address] [place] [address] Care Team Providers Care Golf Course Manager Name Role Phone Selvin Marion DO Primary Care Provider Allergies Active Allergy Reactions Criticality Noted Date Comments Ciprofloxacin Other (See Comments) 03/02/2022 Tendinitis Leg cramps Lisinopril Cough Low 03/02/2022 Medications loratadine (CLARITIN) 10 mg tablet Take 10 mg by mouth daily. Active multivitamin (DAILY-NAEL) tablet Take 1 Tablet by mouth daily. [...] Description 05/27/2025 3:30 PM CDT Office Visit [facility] Oncology and Hematology [facility] [address] [place] [address] Niels Zuñiga MD [address] [place] [address] Health Maintenance Due Date Last Done Comments Pre-Diabetes and Diabetes Screening 1955 DTAP/TDAP/TD VACCINES (1 - Tdap) 1974 PNEUMOCOCCAL VACCINE 50+ YEA RS (1 of 2 - PCV) 1974 Traditional Medicare (ACO) A nnual Wellness Visit 1974 FIT-DNA Q 3 years 2000 FIT/FOBT [...] MEDICARE PART A AND B Care Teams Golf Course Manager Relationship Specialty Start Date End Date Selvin Marion DO [address] [address] PCP - General Internal Medicine 03/02/22
[2025-05-24 08:31] LABS: Hematocrit 34.9 % (42.0-52.0); Hemoglobin 12.2 g/dL (14.0-18.0); Immature Granulocyte Percent A 0.4 % (0-0.5); Lymphocytes Absolute Auto 2.17 K/mm3 (0.9-3.2); Mean Corpuscular HGB Conc 35.0 g/dl (32-36); Mean Corpuscular Hemoglobin 37.3 pg (26-34); Mean Corpuscular Volume 106.7 fl (80-100); Nucleated Red Blood Cells Absolute Auto 0.000 K/mm3 (0.0-0.012); Nucleated Red Blood Cells Perc 0.0 % (0.0-0.2); Platelet Count Result 155 k/mm3 (150-375); Red Blood Count 3.27 M/mm3 (4.6-6.20); White Blood Count 10.0 K/mm3 (4.5-10.0)
[2025-05-24 10:00] LABS: Alanine Aminotransferase 41 U/L (6-50); Albumin Level 4.9 g/dL (3.5-5.1); Alkaline Phosphatase 95 U/L (38-126); Anion Gap 10 mmol/L (4-12); Aspartate Amino Transferase 46 U/L (17-59); Bilirubin,Total 0.5 mg/dL (0.2-1.3); Blood Urea Nitrogen 12 mg/dL (9-20); Calcium 9.7 mg/dL (8.4-10.2); Carbon Dioxide 24 mmol/L (22-30); Chloride 104 mmol/L (98-107); Estimated Glomerular Filt Rate > 60; Glucose 122 mg/dL (65-110); Potassium 4.1 mmol/L (3.4-5.0); Sodium 138 mmol/L (137-145); Total Protein 8.7 g/dL (6.3-8.2)
== END 2025-05-24 08:17 | disposition home or self-care (01) ==
LOC: ANHLAB 08:17
PROVIDERS: PCP Nurse Practitioner; Visit Provider Internal Medicine Hematology & Oncology
DX: D64.9 Anemia, unspecified (principal)
CPT/HCPCS: 36415; 80053; 85025